=== PATIENT | male | born 1980 | race Caucasian/White ===

== ENCOUNTER 2024-08-24 08:29 | Emergency (ER) | payer OTHER, SELFPAY ==
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
--- OUTSIDE RECORDS SUMMARY | 2024-08-24 08:32 | XMS_ITS | Data Portability ---
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 best is on an empty stomach. Duration:constant; daily Modifying Factors:nothing gives relief; eating; Improves with moving bowels but not completely gone. Tried taking a stool softener, no change in abdominal discomfort, has not taken the stool softener in one week. Eating makes the abdominal pain worse. Associated Symptoms:fever;chills; blood in the urine;heartburn;shortn ess of breath;nausea;black or tarry stools;decreased appetite; bloating and increased discomfort with food intake. Early satiety can't eat a full meal anymore BMs daily, [place] 4. Bloating worse with fluids and with food. Has had black/tarry stools a few times , the last one was 07/02/19, but on an intermittent basis. Total number of black-tarry stools is 12 since December 2018. Feels groggy quite often Feels gassy - passes gas 20 - 30 times daily Denies pain with defecation. Approximately 12 pound weight gain since November 2018. Referred by Dr. Kahlil Urias for lower abdominal pain. States that he had a procedure in December at [facility] where they took something off my tailbone . CT of December 29, 2018 showed a perianal abscess. Procedure note from [facility] is not available. Labs of 06/04/19 show a normal amylase and lipase, normal CMP, essentially normal CBC. CT of abdomen with and without contrast and CMP were ordered 06/04/19, but not done yet. YEISON HO NP [address] [place], [address], [facility] 07/17/2019 13:30:24 07/16/2019 text/html Abdominal PainRe ported bypatient.Location:[facility] Quality:pain;bloating; sharp Severity:pain level 2/10; Awakens at night. At worst: 6/10 At best: 2/10. At its best is on an empty stomach. Duration:constant; daily Modifying Factors:nothing gives relief; eating; Improves with moving bowels but not completely gone. Associated Symptoms:no fever; no chills; no blood in the urine; no heartburn; no shortness of breath;nausea;black or tarry stools;decreased appetite; bloating and increased discomfort with food intake. Early satiety can't eat a full meal anymore BMs daily, [place] 4. Bloating worse with fluids and with food. Has had black/tarry stools a few times , the last one was 07/02/19, but on an intermittent basis. Total number of black-tarry stools is 12 since December 2018. Feels groggy quite often Feels gassy - passes gas 20 - 30 times daily Denies pain with defecation. Approximately 12 pound weight gain since November 2018.Notes:Denies family history of colon or stomach cancer. Presents for follow up from visit of 07/05/19 for abdominal pain which has been persistent since December 2018 when he had an excision of a perianal abscess at [facility]. Has not had CT of the abdomen/pelvis CBC, CMP, WNL H. Pylori, negative YEISON HO NP [address], [place], [address], [facility] 07/16/2019 13:40:35 07/30/2019 text/html Rectal BleedingReported bypatient.Quality:pain less Severity:mild Duration:present <1 month Timing:better Context:occurs with bowel movement Associated Symptoms:no straining; no diarrhea; no cramping Presents for follow up for abdominal pain. CT of the abdomen was not approved by insurance carrier. Abdominal US of 07/26/2019 showed no abnormality within the abdomen. Has had no abdominal pain since the US was done. He is able to play with his kid, is able to wear jeans and his appetite has increased. He has had no further episodes of melena since the end of June 2019. YEISON HO, PURCHASING COORDINATOR [address] [place], [address], [facility] 07/30/2019 12:27:18 06/08/2021 text/html Office visit, melissa chand back pain, no recent trauma, same area where he had cyst removed years ago at [facility]. Will find old record. NKDA. Kahlil Urias MD Attn: Accounting, [address] [place], [address], [facility] 06/08/2021 17:57:33 01/02/2023 text/html Office visit, CORI SANDERS. C/C 1. right neck nut underneath the skin for quite a while, but noticed the change of size. , quit smoking since 2019. 2. Right foot pain on the button, by the end of day it huts so bad. , Had history of right great toe Kahlil Urias MD Attn: Accounting, [address] [place], [address], [facility] 01/02/2023 11:33:32
[2024-08-24 08:37] VITALS: BP 147/88; PULSE 65; RESP 15; TEMP 36.9; O2SAT 98
[2024-08-24] MEDS: KETOROLAC (*BKC) 60 MG/2 ML VIAL IM (09:07)
[2024-08-24 09:09] VITALS: BP 142/87; PULSE 77; RESP 15; O2SAT 98
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
[2024-08-24 09:54] VITALS: BP 133/93; PULSE 65; RESP 18; O2SAT 98
== END 2024-08-24 09:55 | disposition home or self-care (01) ==
PROVIDERS: Emergency Provider Emergency Medicine; PCP Internal Medicine
DX: S63.635A Sprain of interphalangeal joint of left ring finger, initial encounter (principal); S13.4XXA Sprain of ligaments of cervical spine, initial encounter; V43.52XA Car driver injured in collision with other type car in traffic accident, initial encounter
CPT/HCPCS: 73130; 96372; 99283; J1885

== ENCOUNTER 2024-09-24 18:47 | Emergency (ER) | payer OTHER, SELFPAY ==
[2024-09-24 18:49] VITALS: PULSE 94; RESP 16; TEMP 36.6; O2SAT 99
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
--- OUTSIDE RECORDS SUMMARY | 2024-09-24 18:49 | XMS_ITS | CONTINUITY OF CARE DOCUMENT ---
Author Name [email or web address] Address Unknown Organization [facility] Address [address] [place] [address] Phone [phone] Care Team Providers Care Metal Moulder'S Assistant Name Role Phone Roseanna SHELBY, Stevenson Unavailable INDIGO KNOX MD Unavailable [phone] INDIGO KNOX MD Unavailable [phone] INSURANCE PROVIDERS Payer name Policy type / Coverage type [place] [employer] party ID [facility] [id number] Other [id number]
--- NOTE | 2024-09-24 18:53 | PC.NURSE ---
This RN attempted to assess patients pain level by asking his pain on a scale of 0-10. Pt states, I don't know you can just pick a number. This RN stated I was unable to pick a number for him as it is his pain, not mine and I cannot pick an number while trying to asses his pain level. Pt then responded, I'm gonna have to go home because you're pissing me off. Pt then demanded for his vital signs to be stopped and then pt ambulated out of the ER with a steady gait.
--- OUTSIDE RECORDS SUMMARY | 2024-09-24 19:21 | XMS_ITS | CONTINUITY OF CARE DOCUMENT ---
Author Name [email or web address] Address Unknown Organization [facility] Address [address] [place] [address] Phone [phone] Care Team Providers Care Automotive Production Worker Name Role Phone Roseanna SHELBY, Stevenson Unavailable INDIGO KNOX MD Unavailable [phone] INDIGO KNOX MD Unavailable [phone] INSURANCE PROVIDERS Payer name Policy type / Coverage type [place] red democrat ID [facility] [id number] Other [id number]
== END 2024-09-24 18:53 | disposition left against medical advice (07) ==
LOC: ANHED 19:20
PROVIDERS: PCP Internal Medicine
DX: S09.90XA Unspecified injury of head, initial encounter (principal)
CPT/HCPCS: 99199

== ENCOUNTER 2025-03-22 13:09 | Outpatient (CLI) | payer OTHER, SELFPAY ==
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
== END 2025-03-22 13:10 | disposition home or self-care (01) ==
PROVIDERS: PCP Physician Assistant Medical; Visit Provider Physician Assistant Medical
DX: M54.2 Cervicalgia (principal)
CPT/HCPCS: 72040